=== PATIENT | female | born 2005 | race Caucasian/White ===

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

== ENCOUNTER 2024-01-17 23:55 | Emergency (ER) | payer SELFPAY ==
[~2024-01-17] VITALS: Ht 160 cm; Wt 91.2 kg
[~2024-01-17 23:55] MED LIST changes: +LORA1T1237 PO; +PROM118S5 PO
[2024-01-18 00:03] VITALS: BP 136/88; PULSE 89; RESP 18; TEMP 98.3; O2SAT 99
[2024-01-18 01:05] VITALS: BP 136/88; PULSE 89; RESP 18; TEMP 98.3; O2SAT 99
[2024-01-18 02:25] LABS: BASOPHILS # (AUTO) 0.1 K/uL (0.00-0.22); BASOPHILS % (AUTO) 0.7 % (0.0-2.0); EOSINOPHILS # (AUTO) 0.2 K/uL (0-0.4); EOSINOPHILS % (AUTO) 1.6 % (0.0-4.0); HEMOGLOBIN 12.2 g/dL (12.0-16.0); LYMPHOCYTES # (AUTO) 3.2 K/uL (2.5-16.5); LYMPHOCYTES % (AUTO) 27.1 % (20.5-51.1); MEAN CORPUSCULAR HEMOGLOBIN 26 pg (27-31); MEAN CORPUSCULAR HGB CONC 33 g/dL (33-37); MEAN CORPUSCULAR VOLUME 78.2 fL (80-94); MONOCYTES # (AUTO) 0.9 K/uL (0.8-1.0); MONOCYTES % (AUTO) 8.1 % (1.7-9.3); NEUTROPHILS # (AUTO) 7.3 K/uL (1.8-7.7); NEUTROPHILS % (AUTO) 62.5 % (42.2-75.2); PLATELET COUNT (AUTO) 326 K/uL (140-450); RED BLOOD CELL COUNT(AUTO) 4.73 MIL/uL (4.20-5.40); RED CELL DISTRIBUTION WIDTH 15.2 % (11.6-13.7); WHITE BLOOD COUNT (AUTO) 11.7 K/uL (4.5-11.0)
[2024-01-18] MEDS: KETOROLAC 30 MG/ML VIAL IM ONE (02:26)
[2024-01-18 02:38] LABS: ANION GAP 13.2 (8-16); CALCIUM 9.1 mg/dL (8.5-10.1); CARBON DIOXIDE 25.6 mmol/L (21-32); CREATININE 0.7 mg/dL (0.6-1.3); POTASSIUM 3.8 mmol/L (3.5-5.1)
[2024-01-18] MEDS ORDERED: PRED20TA5 PO (02:54)
== END 2024-01-18 03:00 | disposition home or self-care (01) ==
LOC: MED 23:55
DX: J20.9 Acute bronchitis, unspecified (principal); Z79.899 Other long term (current) drug therapy
CPT/HCPCS: 36415; 71045; 80048; 81025; 85025; 86308; 96372; 99284; J1885; Q0092